=== PATIENT | female | born 1955 | race African-American/Black ===

== ENCOUNTER 2020-04-02 13:57 | Emergency (ER) | payer OTHER ==
[~2020-04-02] VITALS: Ht 167.6 cm; Wt 90.0 kg
[2020-04-02 16:04] LABS: BASOPHILS % 0.9 % (0.0-2.0); EOSINOPHILS % 2.2 % (0.0-5.0); HEMATOCRIT. 31.8 % (36.0-48.0); HEMOGLOBIN. 10.5 g/dL (12.0-16.0); LYMPHOCYTES % 20.3 % (20.0-50.0); MEAN CORPUSCULAR HEMOGLOBIN 30.9 pg (28.0-32.0); MEAN CORPUSCULAR VOLUME 93.8 fL (81.0-99.0); MEAN PLATELET VOLUME 7.4 fl (7.4-10.4); MONOCYTES % 9.1 % (2.0-8.0); NEUTROPHILS % 67.5 % (40.0-76.0); PLATELET 268 x1000/uL (130-400); RED BLOOD CELL COUNT 3.39 mill/uL (4.2-5.4); RED CELL DISTRIBUTION WIDTH 15.4 % (11.6-14.6)
[2020-04-02 16:05] LABS: CHLORIDE 103 mEq/L (98-107)
[2020-04-02] MEDS ORDERED: ONDANSETRON 4MG ODT PO ONE (19:15)
[2020-04-02 20:23] VITALS: BP 136/60
== END 2020-04-02 20:23 | disposition home or self-care (01) ==
LOC: ER 14:14
DX: L89.611 Pressure ulcer of right heel, stage 1 (principal); E11.22 Type 2 diabetes mellitus with diabetic chronic kidney disease; I12.0 Hypertensive chronic kidney disease with stage 5 chronic kidney disease or end stage renal disease; N18.6 End stage renal disease; R03.0 Elevated blood-pressure reading, without diagnosis of hypertension; Z99.2 Dependence on renal dialysis
CPT/HCPCS: 36415; 73630; 80053; 85025; 93005; 93970; 99285

== ENCOUNTER 2023-05-14 19:06 | Emergency (ER) | payer MEDICARE, OTHER ==
[~2023-05-14] VITALS: Ht 170.2 cm; Wt 113.0 kg
[2023-05-14 19:12] VITALS: O2SAT 100
[2023-05-14] MEDS ORDERED: FLUCONAZOLE 100MG TABLET PO ONE (20:15)
[2023-05-14] MEDS ORDERED: FLUCONAZOLE 150MG TABLET PO NR (21:06)
[2023-05-14 21:14] LABS: CLARITY URINE TURBID (CLEAR); COLOR URINE YELLOW (YELLOW); GLUCOSE URINE NEGATIVE (NEGATIVE); KETONES URINE NEGATIVE (NEGATIVE); LEUKOCYTE ESTERASE URINE 3+ (NEGATIVE); NITRITE URINE NEGATIVE (NEGATIVE); OCCULT BLOOD URINE 2+ (NEGATIVE); PROTEIN URINE 3+ (NEGATIVE); SPECIFIC GRAVITY URINE 1.011 (1.005-1.030); UROBILINOGEN URINE 0.2 E.U./dL (0.2-1.0)
[2023-05-14] MEDS ORDERED: CEPH500T MT (21:21)
[2023-05-14] MEDS ORDERED: DIF15 MT (21:21)
[2023-05-14] MEDS ORDERED: CEPHALEXIN 250MG CAPSULE PO ONE (21:30)
[2023-05-14] MEDS ORDERED: CEPHALEXIN 250MG CAPSULE PO NR (21:49)
[2023-05-14 22:00] LABS: WBC URINE TNTC /hpf (0-2)
[2023-05-14 22:01] LABS: BACTERIA URINE 1+; SQUAMOUS EPITHELIAL CELL URINE 1+ /lpf (RARE/1+)
[2023-05-15 08:21] VITALS: BP 146/82; PULSE 69; RESP 18; TEMP 97.9
== END 2023-05-15 09:25 | disposition home or self-care (01) ==
LOC: ER 19:06
DX: B37.31 Acute candidiasis of vulva and vagina (principal); N39.0 Urinary tract infection, site not specified; E11.9 Type 2 diabetes mellitus without complications; I12.0 Hypertensive chronic kidney disease with stage 5 chronic kidney disease or end stage renal disease; N18.6 End stage renal disease; Z99.2 Dependence on renal dialysis; Z88.5 Allergy status to narcotic agent; Z88.8 Allergy status to other drugs, medicaments and biological substances
CPT/HCPCS: 81003; 82962; 87077; 87186; 99283